=== PATIENT | female | born 1995 | race Two or more races ===

== ENCOUNTER 2022-08-19 14:15 | Emergency (ER) | payer OTHER ==
[~2022-08-19] VITALS: Ht 162.6 cm; Wt 591.9 kg
== END 2022-08-19 19:20 | disposition home or self-care (01) ==
LOC: ER 14:15
DX: U07.1 COVID-19 (principal)

== ENCOUNTER 2024-10-15 03:54 | Emergency (ER) | payer OTHER ==
[~2024-10-15] VITALS: Ht 162.6 cm; Wt 59.0 kg
[2024-10-15] MEDS ORDERED: 0.9 % SODIUM CHLORIDE 1,000 ML IV STA (05:11)
[2024-10-15] MEDS ORDERED: KETOROLAC TROMETHAMINE 30 MG VIAL IV STA (05:12)
[2024-10-15] MEDS ORDERED: MORPHINE SULFATE 2 MG/ML SYRINGE IV STA (05:15)
[2024-10-15] MEDS ORDERED: KETOROLAC TROMETHAMINE 30 MG VIAL ONE (05:34)
[2024-10-15 06:10] LABS: HEMATOCRIT 34.9 % (36.0-45.00); HEMOGLOBIN 12.5 g/dL (12.0-15.00); MEAN CELL VOLUME 91.6 fL (80.00-100.00); MEAN CORPUSCULAR HEMOGLOBIN 32.7 pg (27.00-32.0); MEAN CORPUSCULAR HGB CONC 35.7 g/dl (32.0-36.0); PLATELET COUNT 302 K/uL (150-450); RED BLOOD COUNT 3.81 M/uL (4.00-6.00)
[2024-10-15 06:59] LABS: INR 0.95; PARTIAL THROMBOPLASTIN TIME 26.8 SECONDS (22.0-34.0); PROTHROMBIN TIME 10.4 SECONDS (9.0-11.5)
[2024-10-15 07:41] LABS: CALCIUM 9.4 mg/dL (8.5-10.1); CREATININE SERUM 0.78 mg/dL (0.55-1.02); GFR 88.59; POTASSIUM 3.84 mEq/L (3.5-5.1)
== END 2024-10-15 10:49 | disposition home or self-care (01) ==
LOC: ER 03:57
DX: O04.6 Delayed or excessive hemorrhage following (induced) termination of pregnancy (principal); R10.2 Pelvic and perineal pain